=== PATIENT | male | born 1960 | race Caucasian/White ===

== ENCOUNTER 2019-10-07 10:34 | Inpatient (IN) | payer MEDICAID, SELFPAY ==
[2019-10-07] VITALS (8 sets, daily range): BP systolic 113–144; BP diastolic 70–86; PULSE 100–104; RESP 16–25; TEMP 36.2–37.2; O2SAT 94–100; BMI 33.2
--- NOTE | ~2019-10-07 | CT_ITS ---
EXAMINATION: CT LE LT w con EXAM DATE: 10/10/2019 17:49 INDICATION: Left leg sialoadenitis, redness. TECHNIQUE: Spiral CT left lower extremity was performed following intravenous injection of 100 mL Omn ipaque 350. Axial, coronal and sagittal images were reviewed. The dose-length product (DLP) for thi s examination was 1407.38 mGy-cm. The exposure was tailored according to patient size (auto mA expos ure control), and iterative reconstruction (ASIR) was used as additional dose reduction technique. Co rrelation is made to ultrasound 10/07/2019. FINDINGS: Difficult to identify the left peroneal DVT identified on ultrasound. Trace knee joint ef fusion. There is no abscess. Diffuse swelling of the catheter skin with rather extensive edema both s uperficially and within the deep fat planes of the calf. Mild amount of edema within the upper aspect of the leg superficial and deep fat planes. There are no acute fractures identified. There are no [place] erosions identified. IMPRESSION: Extensive lower leg edema, fat stranding both superficial and deep. No abscess. Reviewed, dictated and finalized at location A. [facility] [place] IMPRESSION: Extensive lower leg edema, fat stranding both superficial and deep . No abscess.
--- NOTE | ~2019-10-07 | US_ITS ---
EXAMINATION: US venous doppler LE DATE: 10/07/2019 12:30 INDICATION: Left lower limb pain, swelling and erythema. TECHNIQUE: Grayscale ultrasound images without and with compression and Doppler ultrasound images of the left lower extremity veins were obtained. COMPARISON: None. FINDINGS: Noncompressible deep venous thrombosis in one of the 2 peroneal veins at the left calf. The second le ft peroneal vein is patent. The visualized portions of left common femoral vein, profunda (deep) femo ral vein, femoral vein, popliteal vein, posterior tibial veins, gastrocnemius vein and greater saphen ous vein outflow are patent. IMPRESSION: 1. Deep venous thrombosis below the left knee in one of the paired left peroneal veins of the calf. Reviewed, dictated and finalized at location A. [employer] IMPRESSION: 1. Deep venous thrombosis below the left knee in one of the paired left perone al veins of the calf.
[2019-10-07 11:38] LABS: Basophils Percent Auto 0.2 % (0.2-1.2); Eosinophils Percent Auto 0.2 % (0-4.4); Hematocrit 38.7 % (42.0-52.0); Hemoglobin 13.1 g/dL (14.0-18.0); Immature Granulocyte Absolute 0.06 K/mm3 (0.00-0.031); Immature Granulocyte Percent A 0.5 % (0-0.5); Lymphocytes Absolute Auto 1.05 K/mm3 (0.9-3.2); Lymphocytes Percent Auto 8.3 % (18.3-44.2); Mean Corpuscular HGB Conc 33.9 g/dl (32-36); Mean Corpuscular Hemoglobin 29.5 pg (26-34); Mean Corpuscular Volume 87.2 fl (80-100); Mean Platelet Volume 11.6 fl (7.4-10.4); Monocytes Absolute Auto 0.6 K/mm3 (0.1-0.6); Monocytes Percent Auto 4.7 % (2.6-8.5); Neutrophils Absolute Auto 10.9 K/mm3 (1.3-6.7); Neutrophils Percent Auto 86.1 % (45.5-73.1); Platelet Count Result 164 k/mm3 (150-375); Red Blood Count 4.44 M/mm3 (4.6-6.20); Red Cell Distribution Width 14.4 % (11.5-14.5); White Blood Count 12.7 K/mm3 (4.5-10.0)
[2019-10-07 11:56] LABS: Blood Urea Nitrogen 20 mg/dL (9-20); Carbon Dioxide 30 mmol/L (22-30); Chloride 92 mmol/L (98-107); Estimated CRCL calculation 58 ml/min; Estimated Glomerular Filt Rate 44; Glucose 201 mg/dL (75-110); Potassium 2.8 mmol/L (3.4-5.0); Sodium 134 mmol/L (137-145)
--- NOTE | 2019-10-07 12:24 | ED.GENADULT ---
HPI - General Adult General Chief complaint: Extremity Injury, Lower Stated complaint: left leg swelling Time Seen by Provider: 10/07/19 12:10 Source: patient Mode of arrival: ambulatory Limitations: no limitations History of Present Illness HPI narrative: A 59 y/o male presents to the ED with c/o LLE pain. Pt states that 2 days ago the severe LLE pain started and was accompanied by LLE swelling and redness. He notes that he has a PMHx of cellulitis in his LLE and reports that this feels similar. Pt states that the LLE pain is alleviated when he is lying flat. He rates the LLE pain a 10/10 when he tries to stand and describes it as a burning pain. Pt denies fever, chills, N/V/D, rhinorrhea, sore throat, CP, and SOB. He states that he has been blowing dried blood from his nose and thinks he has a sinus infection. complaint: LLE pain Onset (ago): day(s) (2) Location: left and lower extremity Severity: severe and similar to prior episodes Severity scale (1-10): 10 Quality: burning Relieving factors: rest (Lying down) Associated symptoms: other (LLE redness, LLE swelling) Related Data Home Medications Medication Instructions Recorded Confirmed Amelog 10/07/19 Januvia 10/07/19 Vitamin D3 10/07/19 aspirin [Aspir-81] 10/07/19 hydrochlorothiazide 10/07/19 losartan 10/07/19 metformin 10/07/19 vitamin E 10/07/19 Allergies Allergy/AdvReac Type Severity Reaction Status Date / Time No Known Allergies Allergy Verified 10/07/19 12:12 Review of Systems Review of Systems: All systems reviewed & are unremarkable except as noted in HPI and below Constitutional: Constitutional: Denies chills and Denies fever(s) ENT: Denies nasal discharge and Denies sore throat Cardiovascular: Cardiovascular: Denies chest pain and Reports leg edema (LLE) Respiratory: Respiratory: Denies dyspnea Gastrointestinal: Gastrointestinal: Denies diarrhea, Denies nausea and Denies vomiting Musculoskeletal: Musculoskeletal: Reports myalgias (LLE) and Reports other (LLE redness) PMFSH Past Medical History Medical History (Updated 10/07/19 @ 15:06 by Vera Watson MD) Cellulitis Surgical History Surgical History (Updated 10/07/19 @ 13:02 by Grisel Griffin) No pertinent past surgical history Social History Social History (Updated 10/07/19 @ 13:02 by Grisel Griffin) Smoking status: Unknown if ever smoked Exam Const: General: no acute distress and well developed Orientation/consciousness: oriented to person, oriented to place, oriented to time and oriented x3 HENMT: Head: normocephalic Ears: external ears normal General nose exam: external nose normal Eyes: General: appearance normal, both eyes and all related structures Conjunctivae: conjunctivae normal Neck: Neck: normal visual inspection and full ROM Chest: Chest palpation & inspection: normal inspection of the chest and no tenderness Resp: Effort & Inspection: normal respiratory effort Auscultation: clear to auscultation bilaterally Cardio: Rate: regular rate Rhythm: regular rhythm GI: GI Palp: No abdominal tenderness and Yes soft Skin: General skin exam: normal color, turgor normal, ecchymosis and other (Left leg redness) Neuro: General: oriented to person, oriented to place, oriented to time and oriented x3 Cognition (Neuro): normal cognition Extrem: General: full ROM Psych: Appearance: grossly normal Mental Status: mental status grossly normal Affect: normal affect Course Consultations Consultation #1: Discussed case with Whitney Goodman NP. She will admit the patient. Date: 10/07/19 Time: 13:01 Vital Signs Vital signs: Vital Signs Temperature 37.2 C 10/07/19 11:22 Pulse Rate 100 10/07/19 11:22 Respiratory Rate 24 H 10/07/19 11:22 Blood Pressure 138/73 10/07/19 11:22 Pulse Oximetry 98 10/07/19 11:22 Temperature 37.2 C 10/07/19 11:22 Pulse Rate 100 10/07/19 14:47 Respiratory Rate 16 10/07/19 14:47 Bloo
[2019-10-07] MEDS: SODIUM CHLORIDE 0.9% IV 1,000 ML 999 ML IV CONT ×3 (13:08→16:08)
[2019-10-07] MEDS: POTASSIUM CHLORIDE 20 MEQ TABLET 40 MEQ PO (13:09)
--- NOTE | 2019-10-07 13:12 | PC.NURSE ---
blood cx attempted x3, only 1 set obtained
[2019-10-07 13:31] LABS: Lactic Acid Reflex 2.6 mmol/L (0.7-2.1)
--- NOTE | 2019-10-07 16:11 | PC.NURSE ---
Dr Walter membreno with up ad radha order in relation to DVT
[2019-10-07 16:13] LABS: Reflex Lactic Acid Yes or No Add Lactic
[2019-10-07] MEDS: ENOXAPARIN 120 MG/0.8 ML SYRINGE 110 MG SUB-Q (16:40)
--- NOTE | 2019-10-07 18:00 | ADMGEN ---
This patient, Isaias Zavala, was admitted to 3 [facility] Surg Room 311-01. Patient/family oriented to hospital policies and general routines including ID bracelet, bed and alarms, visiting hours, pain management, procedures, bathroom and other care routines, personal items, smoking policy, room service/diet, and visiting hours. Valuables list has been completed. Information on how to activate the Rapid Response Team has been discussed. Patient/Family are encouraged to report perceived risks to care and to ask questions if they do not understand what they are told or what they should do.
[2019-10-07 18:28] LABS: Lactic Acid 3.3 mmol/L (0.7-2.1)
--- NOTE | 2019-10-07 23:18 | PM.IMHP ---
H&P: HPI History of Present Illness Chief complaint: left leg cellulitis Narrative: Isaias Zavala is a 59 year old male who has had a past history of having cellulitis in the past. This patient is from [place]. 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 He travels long distances. Patient stated he recently traveled to [place] from [place]. The patient stated that his leg started to hurt him 2 days ago and the redness and swelling started then as well. He does not recall any injury to his left leg. He has had no previous history of any DVTs. His sodium is potassium level was low at 2.8. His lactic level was 3.3. Patient was given IV fluids in the emergency room. He was started on Zosyn and vancomycin. Patient was supplemented with potassium orally. Patient is admitted for left leg cellulitis. Which covers most of the left leg. Venous Doppler of the left leg shows that he has a DVT in 1 of the 2 peroneal veins in the left calf. Patient was given a dose of subcu Lovenox. Review of Systems Review of Systems: All systems reviewed & are unremarkable except as noted in HPI and below Constitutional: Constitutional: Reports as per HPI, Reports body ache(s), Reports chills, Reports difficulty sleeping, Reports fatigue and Reports other (Pain to left leg) Eyes: Eyes: Reports as per HPI and Reports no additional eye complaints ENT: Reports system reviewed and no additional complaints, except as documented and Reports hearing normal Cardiovascular: Cardiovascular: Reports no additional cardiovascular complaints Respiratory: Respiratory: Reports no additional respiratory complaints and Reports no additional respiratory complaints Gastrointestinal: Gastrointestinal: Reports as per HPI and Reports no additional gastrointestinal complaints Musculoskeletal: Musculoskeletal: Reports no additional musculoskeletal complaints Integumentary/Breasts: Skin/Breast: Reports system reviewed and no additional complaints, except as docu and Reports as per HPI Neurologic: Reports system reviewed and no additional complaints, except as documented, Reports as per HPI and Reports Normal hearing present Psychiatric: Psychiatric: Reports no additional psychiatric complaints and Reports as per HPI Endocrine: Endocrine: Reports no additional endocrine complaints Hematologic/Lymphatic: Hematologic/Lymphatic: Reports no additional hematologic/lymphatic complaints Allergic/Immunologic: Allergic/Immunologic: Reports no additional allergic/immunologic complaints [facility] Past Medical History Medical History (Updated 10/07/19 @ 23:26 by Whitney Goodman NP) Cellulitis Chronic progressive renal failure, stage 3 (moderate) DM2 (diabetes mellitus, type 2) HTN (hypertension) with goal to be determined Left leg DVT Surgical History Surgical History (Updated 10/07/19 @ 23:26 by Whitney Goodman NP) H/O local excision of skin lesion Family History Family History (Updated 10/07/19 @ 23:28 by Whitney Goodman NP) Father Rheumatoid arthritis Sibling Rheumatoid arthritis Social History Social History (Updated 10/07/19 @ 23:29 by Whitney Goodman NP) Social History: 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 He is single and has 1 daughter. 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
[2019-10-07] MEDS: HYDROMORPHONE HCL 1 MG/ML INJ 0.5 MG IV PUSH (23:21)
[2019-10-07 23:38] LABS: Glucose Point of Care 229 (65-105)
[2019-10-07] MEDS: INSULIN ASPART (*BKC) 100 UNITS/ML SUB-Q (23:53)
[2019-10-08 05:51] VITALS: BP 139/91; PULSE 93; RESP 16; TEMP 37.3; O2SAT 91
[2019-10-08 06:40] LABS: Basophils Percent Auto 0.2 % (0.2-1.2); Eosinophils Absolute Auto 0.2 K/mm3 (0-0.3); Eosinophils Percent Auto 2.1 % (0-4.4); Hematocrit 31.5 % (42.0-52.0); Hemoglobin 10.6 g/dL (14.0-18.0); Immature Granulocyte Absolute 0.06 K/mm3 (0.00-0.031); Immature Granulocyte Percent A 0.6 % (0-0.5); Lymphocytes Absolute Auto 1.11 K/mm3 (0.9-3.2); Lymphocytes Percent Auto 11.5 % (18.3-44.2); Mean Corpuscular HGB Conc 33.7 g/dl (32-36); Mean Corpuscular Hemoglobin 28.6 pg (26-34); Mean Corpuscular Volume 85.1 fl (80-100); Mean Platelet Volume 12.3 fl (7.4-10.4); Monocytes Percent Auto 9.8 % (2.6-8.5); Neutrophils Absolute Auto 7.3 K/mm3 (1.3-6.7); Neutrophils Percent Auto 75.8 % (45.5-73.1); Platelet Count Result 143 k/mm3 (150-375); Red Cell Distribution Width 14.1 % (11.5-14.5); White Blood Count 9.7 K/mm3 (4.5-10.0)
[2019-10-08 06:50] LABS: Blood Urea Nitrogen 18 mg/dL (9-20); Calcium 8.3 mg/dL (8.4-10.2); Carbon Dioxide 29 mmol/L (22-30); Chloride 98 mmol/L (98-107); Estimated CRCL calculation 83 ml/min; Estimated Glomerular Filt Rate > 60; Glucose 213 mg/dL (75-110); Potassium 2.9 mmol/L (3.4-5.0); Sodium 135 mmol/L (137-145)
[2019-10-08 06:52] LABS: Alanine Aminotransferase 27 U/L (4-50); Albumin Level 3.4 g/dL (3.5-5.1); Alkaline Phosphatase 100 U/L (38-126); Aspartate Amino Transferase 33 U/L (17-59); Bilirubin,Total 0.9 mg/dL (0.2-1.3); Blood Urea Nitrogen 18 mg/dL (9-20); Calcium 8.3 mg/dL (8.4-10.2); Carbon Dioxide 29 mmol/L (22-30); Chloride 98 mmol/L (98-107); Estimated CRCL calculation 76 ml/min; Estimated Glomerular Filt Rate > 60; Glucose 211 mg/dL (75-110); Magnesium 2.1 mg/dL (1.6-2.3); Potassium 2.9 mmol/L (3.4-5.0); Sodium 137 mmol/L (137-145)
[2019-10-08 08:07] LABS: Hemoglobin A1C 8.4 % (<5.7)
[2019-10-08] MEDS: ENOXAPARIN 120 MG/0.8 ML SYRINGE 110 MG SUB-Q ×2 (08:40→20:00)
[2019-10-08] MEDS: POTASSIUM CHLORIDE 20 MEQ TABLET 40 MEQ PO ×2 (08:44→18:16)
[2019-10-08] MEDS: INSULIN ASPART (*BKC) 100 UNITS/ML SUB-Q ×3 (09:03→18:17)
[2019-10-08 09:33] LABS: Glucose Point of Care 220 (65-105)
[2019-10-08 13:21] LABS: Glucose Point of Care 296 (65-105)
[2019-10-08 13:31] LABS: Basophils Percent Auto 0.2 % (0.2-1.2); Eosinophils Absolute Auto 0.2 K/mm3 (0-0.3); Eosinophils Percent Auto 2.5 % (0-4.4); Hematocrit 32.6 % (42.0-52.0); Hemoglobin 11.2 g/dL (14.0-18.0); Immature Granulocyte Absolute 0.04 K/mm3 (0.00-0.031); Immature Granulocyte Percent A 0.4 % (0-0.5); Lymphocytes Absolute Auto 1.69 K/mm3 (0.9-3.2); Lymphocytes Percent Auto 17.6 % (18.3-44.2); Mean Corpuscular HGB Conc 34.4 g/dl (32-36); Mean Corpuscular Hemoglobin 29.4 pg (26-34); Mean Corpuscular Volume 85.6 fl (80-100); Monocytes Absolute Auto 0.8 K/mm3 (0.1-0.6); Monocytes Percent Auto 8.7 % (2.6-8.5); Neutrophils Absolute Auto 6.8 K/mm3 (1.3-6.7); Neutrophils Percent Auto 70.6 % (45.5-73.1); Platelet Count Result 159 k/mm3 (150-375); Red Blood Count 3.81 M/mm3 (4.6-6.20); Red Cell Distribution Width 14.1 % (11.5-14.5); White Blood Count 9.6 K/mm3 (4.5-10.0)
[2019-10-08 13:44] LABS: Blood Urea Nitrogen 17 mg/dL (9-20); Calcium 8.4 mg/dL (8.4-10.2); Carbon Dioxide 29 mmol/L (22-30); Chloride 94 mmol/L (98-107); Estimated CRCL calculation 83 ml/min; Estimated Glomerular Filt Rate > 60; Glucose 268 mg/dL (75-110); Magnesium 2.2 mg/dL (1.6-2.3); Sodium 134 mmol/L (137-145)
[2019-10-08 14:00] VITALS: BP 143/95; PULSE 93; RESP 18; TEMP 36.7; O2SAT 99
--- NOTE | 2019-10-08 16:53 | PM.IMPN ---
Progress Note: A&P Assessment and Plan (1) Cellulitis of left leg: Code(s): L03.116 - Cellulitis of left lower limb Status: Acute Assessment and Plan: Blood cultures are pending. Continue IV vanc and imipenem. Lactic has normalized. Patient is anxious to get out of the hospital. (2) Sepsis: Code(s): A41.9 - Sepsis, unspecified organism Status: Acute Assessment and Plan: Lactic acid normalized. Continue with antibiotics. IVF stopped. Patient does not appear septic at this time. (3) Hypokalemia: Code(s): E87.6 - Hypokalemia Status: Acute Assessment and Plan: Slowly improving. K 3.0 this afternoon; replaced. Replace as necessary. (4) HTN (hypertension) with goal to be determined: Code(s): I10 - Essential (primary) hypertension Status: Chronic Assessment and Plan: I am holding his medications for now due to increased creatinine, which is improving. IV hydralazine as needed. (5) DM2 (diabetes mellitus, type 2): Code(s): E11.9 - Type 2 diabetes mellitus without complications Status: Acute Assessment and Plan: Sliding scale insulin. A1c 8.4. Patient takes 45 units Lantus QAM; will resume tomorrow morning. Continue SSI, hypoglycemia protocol, ACHS accuchecks (6) Left leg DVT: Code(s): I82.402 - Acute embolism and thrombosis of unspecified deep veins of left lower extremity Status: Acute Assessment and Plan: Subcu therapeutic Lovenox today, then start Xarelto tomorrow morning with 15 mg BID for 21 days, then 20 mg daily thereafter. He will follow up with primary thereafter. (7) Chronic progressive renal failure, stage 3 (moderate): Code(s): N18.3 - Chronic kidney disease, stage 3 (moderate) Status: Chronic Assessment and Plan: Cr is improving today. Unsure of baseline. Metformin, hydrochlorothiazide, Januvia, losartan held for now. May resume some meds tomorrow or at discharge. (8) Left leg swelling: Code(s): M79.89 - Other specified soft tissue disorders Status: Inactive Assessment and Plan: Cellulitis plus DVT. Subjective Interval history: Patient is a 59 yo M with history of DMII, multiple past cellulitis episodes in the past, CKD, and HTN who is here for left lower leg cellulitis and left leg DVT. Patient is doing better today. He thinks his redness in his leg is going down, as well as, his swelling. He can also ambulate better, but still in significant amount of pain. He states he has chronic swelling in his lower extremities. He denies f/c/ns, cp/palpitations, sob, cough, n/v/d/c, rectal bleeding, melena, dysuria, hematuria, right calf pain. Review of Systems Review of Systems: All systems reviewed & are unremarkable except as noted in HPI and below Exam Narrative: Exam Narrative: Patient sitting upright in chair with both legs raised, shirt off, resting comfortable, talking on phone at time of visit Const: General: comfortable, no acute distr
[2019-10-08 18:37] LABS: Glucose Point of Care 228 (65-105)
[2019-10-08 22:00] VITALS: BP 135/87; PULSE 97; RESP 20; TEMP 36.8; O2SAT 92
[2019-10-08 22:45] LABS: Glucose Point of Care 291 (65-105)
[2019-10-09 06:00] VITALS: BP 160/90; PULSE 93; RESP 20; TEMP 36.8; O2SAT 95
[2019-10-09 08:00] VITALS: BP 150/96; PULSE 86; RESP 20; TEMP 35.8; O2SAT 96
[2019-10-09] MEDS: hydrALAZINE HCL 25 MG TABLET PO ×2 (08:15→16:58)
[2019-10-09] MEDS: ASPIRIN 81 MG ENTERIC TABLET PO (08:15)
[2019-10-09] MEDS: RIVAROXABAN 15 MG TABLET PO ×2 (08:16→16:58)
[2019-10-09 08:31] LABS: Blood Urea Nitrogen 14 mg/dL (9-20); Calcium 8.2 mg/dL (8.4-10.2); Carbon Dioxide 30 mmol/L (22-30); Chloride 99 mmol/L (98-107); Estimated CRCL calculation 90 ml/min; Estimated Glomerular Filt Rate > 60; Glucose 232 mg/dL (75-110); Magnesium 2.2 mg/dL (1.6-2.3); Potassium 3.5 mmol/L (3.4-5.0); Sodium 136 mmol/L (137-145)
[2019-10-09 08:33] LABS: Basophils Percent Auto 0.2 % (0.2-1.2); Eosinophils Absolute Auto 0.3 K/mm3 (0-0.3); Eosinophils Percent Auto 3.1 % (0-4.4); Hemoglobin 10.7 g/dL (14.0-18.0); Immature Granulocyte Absolute 0.07 K/mm3 (0.00-0.031); Immature Granulocyte Percent A 0.8 % (0-0.5); Lymphocytes Absolute Auto 1.48 K/mm3 (0.9-3.2); Lymphocytes Percent Auto 17.1 % (18.3-44.2); Mean Corpuscular HGB Conc 34.5 g/dl (32-36); Mean Corpuscular Hemoglobin 29.2 pg (26-34); Mean Corpuscular Volume 84.5 fl (80-100); Mean Platelet Volume 12.3 fl (7.4-10.4); Monocytes Absolute Auto 0.9 K/mm3 (0.1-0.6); Monocytes Percent Auto 10.6 % (2.6-8.5); Neutrophils Absolute Auto 5.9 K/mm3 (1.3-6.7); Neutrophils Percent Auto 68.2 % (45.5-73.1); Platelet Count Result 188 k/mm3 (150-375); Red Blood Count 3.67 M/mm3 (4.6-6.20); Red Cell Distribution Width 14.1 % (11.5-14.5); White Blood Count 8.7 K/mm3 (4.5-10.0)
[2019-10-09] MEDS: INSULIN ASPART (*BKC) 100 UNITS/ML SUB-Q ×4 (08:39→18:10)
[2019-10-09] MEDS: POTASSIUM CHLORIDE 10 MEQ TABLET PO (08:43)
[2019-10-09] MEDS: INSULIN GLARGINE (*BKC) 100 UNITS/ML 45 UNITS SUB-Q (08:44)
[2019-10-09 09:37] LABS: Glucose Point of Care 229 (65-105)
[2019-10-09 10:53] LABS: Lactic Acid 1.6 mmol/L (0.7-2.1)
[2019-10-09] MEDS: POTASSIUM CHLORIDE 20 MEQ TABLET 40 MEQ PO (12:24)
--- NOTE | 2019-10-09 13:27 | PM.IMPN ---
Progress Note: A&P Assessment and Plan (1) Cellulitis of left leg: Code(s): L03.116 - Cellulitis of left lower limb Status: Acute Assessment and Plan: Blood cultures are negative to date. Continue IV vanc and imipenem. Lactic has normalized. Patient is agreeable to stay in hospital for more IV antibiotics. Will order PT/OT for decreased ambulation. HCTZ resumed to aid in swelling. Cr has improved. I would like to see more improvement in leg erythema and swelling and with his ambulation prior to discharge. Will reassess tomorrow (2) Sepsis: Code(s): A41.9 - Sepsis, unspecified organism Status: Acute Assessment and Plan: Lactic acid normalized. Continue with antibiotics. PO fluids. Patient does not appear septic at this time. (3) Hypokalemia: Code(s): E87.6 - Hypokalemia Status: Acute Assessment and Plan: Slowly improving. K 3.5 today; replaced; trend tomorrow and replace as necessary. (4) HTN (hypertension) with goal to be determined: Code(s): I10 - Essential (primary) hypertension Status: Chronic Assessment and Plan: I resumed his HCTZ today as his Cr has improved. Continue home dose hydralazine. IV hydralazine as needed. Will consider resuming other BP meds if Cr stable. (5) DM2 (diabetes mellitus, type 2): Code(s): E11.9 - Type 2 diabetes mellitus without complications Status: Acute Assessment and Plan: Sliding scale insulin. A1c 8.4. Continue home 45 u Lantus QAM. Patient takes 15 units short acting in the morning at home; Continue 5 u Novolog TIDWM while in the hospital. BGL high 100s-low 200s. Continue SSI, hypoglycemia protocol, ACHS accuchecks (6) Left leg DVT: Code(s): I82.402 - Acute embolism and thrombosis of unspecified deep veins of left lower extremity Status: Acute Assessment and Plan: Originally on subcu lovenox at therapeutic dose; this has been d/c; Xarelto initiated today; 15 mg BID for 21 days, then 20 mg daily thereafter. He will follow up with primary thereafter. (7) Chronic progressive renal failure, stage 3 (moderate): Code(s): N18.3 - Chronic kidney disease, stage 3 (moderate) Status: Chronic Assessment and Plan: Cr is improving today. Unsure of baseline. Metformin, Januvia, losartan held for now. May resume some meds tomorrow or at discharge. (8) Left leg swelling: Code(s): M79.89 - Other specified soft tissue disorders Status: Inactive Assessment and Plan: Cellulitis plus DVT. please see above a/p Subjective Interval history: Patient is a 59 yo M with history of DMII, multiple past cellulitis episodes in the past, CKD, and HTN who is here for left lower leg cellulitis and left leg DVT. Patient is improving today. He thinks his redness in his leg is going down, but he states his swelling is still improving. He can also ambulate better, but still in significant amount of pain and limited in his mobility. He had a nose bleed this m
[2019-10-09 13:31] LABS: Glucose Point of Care 185 (65-105)
[2019-10-09 14:00] VITALS: BP 161/56; PULSE 95; RESP 18; TEMP 37; O2SAT 97
[2019-10-09] MEDS: ACETAMINOPHEN 325 MG TABLET 650 MG PO ×2 (15:25→20:08)
[2019-10-09] MEDS: CALCIUM CARBONATE (TUMS) 500 MG (200 MG ELEMENTAL) PO ×2 (15:26→21:26)
[2019-10-09 18:08] LABS: Glucose Point of Care 156 (65-105)
[2019-10-09 20:54] LABS: Glucose Point of Care 231 (65-105)
[2019-10-09 22:00] VITALS: BP 158/90; PULSE 78; RESP 18; TEMP 36.9; O2SAT 94
[2019-10-09 23:40] VITALS: BP 154/90
--- NOTE | 2019-10-10 00:51 | ECG_ITS ---
Measurements Intervals [place] Rate: 85 P: 49 AK: 175 QRS: 25 QRSD: 114 T: 9 QT: 403 QTc: 481 Interpretive Statements SINUS RHYTHM WITH SINUS ARRHYTHMIA INTRAVENTRICULAR CONDUCTION DELAY BORDERLINE ST ABNORMALITY- INFERIOR LEADS BORDERLINE ECG Electronically Signed On 10-10-2019 7:12:06 IGNITER CAPPER by Aj Mathews D.O.
[2019-10-10] MEDS: MAG HYDROX/AL HYDROX/SIMETH 30 ML UDC PO (01:04)
[2019-10-10] MEDS: LORAZEPAM INJ 2 MG/ML VIAL 0.5 MG IV PUSH (01:04)
[2019-10-10] MEDS: ACETAMINOPHEN 325 MG TABLET 650 MG PO ×3 (05:28→20:07)
[2019-10-10 06:00] VITALS: BP 152/82; PULSE 99; RESP 20; TEMP 37.1; O2SAT 95
[2019-10-10 06:32] LABS: Basophils Percent Auto 0.4 % (0.2-1.2); Eosinophils Absolute Auto 0.2 K/mm3 (0-0.3); Eosinophils Percent Auto 2.1 % (0-4.4); Hematocrit 32.8 % (42.0-52.0); Hemoglobin 11.1 g/dL (14.0-18.0); Immature Granulocyte Absolute 0.15 K/mm3 (0.00-0.031); Immature Granulocyte Percent A 1.4 % (0-0.5); Lymphocytes Absolute Auto 1.37 K/mm3 (0.9-3.2); Mean Corpuscular HGB Conc 33.8 g/dl (32-36); Mean Corpuscular Hemoglobin 29.1 pg (26-34); Mean Corpuscular Volume 85.9 fl (80-100); Mean Platelet Volume 11.9 fl (7.4-10.4); Monocytes Absolute Auto 1.1 K/mm3 (0.1-0.6); Monocytes Percent Auto 10.2 % (2.6-8.5); Neutrophils Absolute Auto 7.7 K/mm3 (1.3-6.7); Neutrophils Percent Auto 72.9 % (45.5-73.1); Platelet Count Result 200 k/mm3 (150-375); Red Blood Count 3.82 M/mm3 (4.6-6.20); Red Cell Distribution Width 14.1 % (11.5-14.5); White Blood Count 10.6 K/mm3 (4.5-10.0)
[2019-10-10 06:42] LABS: Blood Urea Nitrogen 13 mg/dL (9-20); Calcium 8.5 mg/dL (8.4-10.2); Carbon Dioxide 27 mmol/L (22-30); Chloride 98 mmol/L (98-107); Estimated CRCL calculation 90 ml/min; Estimated Glomerular Filt Rate > 60; Glucose 236 mg/dL (75-110); Sodium 135 mmol/L (137-145)
[2019-10-10 08:00] VITALS: PULSE 86; RESP 20; TEMP 35.8; O2SAT 96
[2019-10-10 08:49] LABS: Glucose Point of Care 246 (65-105)
[2019-10-10] MEDS: hydroCHLOROthiazide 25 MG TABLET 50 MG PO (08:55)
[2019-10-10] MEDS: RIVAROXABAN 15 MG TABLET PO ×2 (08:55→18:09)
[2019-10-10] MEDS: ASPIRIN 81 MG ENTERIC TABLET PO (08:55)
[2019-10-10] MEDS: hydrALAZINE HCL 25 MG TABLET PO ×2 (08:55→18:09)
[2019-10-10] MEDS: POTASSIUM CHLORIDE 20 MEQ TABLET 40 MEQ PO ×2 (08:57→18:40)
[2019-10-10] MEDS: INSULIN GLARGINE (*BKC) 100 UNITS/ML 45 UNITS SUB-Q (08:57)
[2019-10-10] MEDS: LOSARTAN POTASSIUM 100 MG TABLET BY MOUTH (09:20)
[2019-10-10] MEDS: INSULIN ASPART (*BKC) 100 UNITS/ML SUB-Q ×3 (09:20→13:36)
[2019-10-10] MEDS: POTASSIUM CHLORIDE 10 MEQ TABLET PO (10:27)
--- NOTE | 2019-10-10 11:28 | PM.IMPN ---
Progress Note: A&P Assessment and Plan (1) Cellulitis of left leg: Code(s): L03.116 - Cellulitis of left lower limb Status: Acute Assessment and Plan: Discussed with PA. Suspect induration and other use of the left lower extremity all from cellulitis but CT scan ordered to ensure no abscess. Results available late on 10/10/2019 with extensive lower leg edema and fat stranding both superficial and deep but no abscess. Will keep patient here today on a IV vancomycin and imipenem. Reassess tomorrow. [place] and IV morphine as needed for pain. (2) Left leg DVT: Qualifiers: Affected thrombotic vein of extremity: peroneal Chronicity: acute Qualified Code(s): I82.452 - Acute embolism and thrombosis of left peroneal vein Code(s): I82.402 - Acute embolism and thrombosis of unspecified deep veins of left lower extremity Status: Acute Assessment and Plan: Venous Doppler left lower extremity with DVT in 1 of 2 left peroneal veins. Will continue Xarelto. 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 Still with some elevated readings. Will continue Lantus and scheduled NovoLog with meals. Will restart home Januvia. sliding scale insulin as needed. May need to adjust medication if not improving. Hemoglobin A1c 8.4. (4) Hypokalemia: Code(s): E87.6 - Hypokalemia Status: Acute Assessment and Plan: Potassium 3.0 today. Home potassium continued with additional replacement given today. Continue to monitor and replace as needed. (5) HTN (hypertension) with goal to be determined: Code(s): I10 - Essential (primary) hypertension Status: Chronic Assessment and Plan: Blood pressure reviewed on 10/10/2019 with persistent mild elevation. Continue home hydralazine, losartan and hydrochlorothiazide. Will continue to monitor. May need to increase hydralazine if elevated blood pressure persists. (6) Chronic progressive renal failure, stage 3 (moderate): Code(s): N18.3 - Chronic kidney disease, stage 3 (moderate) Status: Chronic Assessment and Plan: Creatinine stable at 1.00 today. Will continue to monitor. Time Spent With Patient Time with patient: 15 - 25 minutes Subjective Interval history: Date of Service: 10/10/2019. Admitted with cellulitis left lower extremity, DVT left lower extremity. Case reviewed and discussed with PA. Patient seen with PA this morning. Decreased redness left lower extremity but has other discoloration on lower portion of leg and foot. No chest pain or shortness of breath. No nausea or vomiting. Nosebleeds better. Review of Systems Constitutional: Constitutional: Denies fever(s) ENT: Comments: epistaxis Cardiovascular: Cardiovascular: Denies chest pain Respiratory: Respiratory: Denies dyspnea Gastrointestinal: Gastrointestinal: Denies abdominal pain, Denies nausea and Denies vomiting Genitourinary: Genitourinary: Reports no additional male genitourinary complaints Integumentary/Breasts: Comments: Erythema and purplish discoloration left lower extremity Neurologic: Denies numbness Psychiatric: Psychiatric: Denies anxiety Exam Const: General: no acute distress Resp: Auscultation: clear to auscultation bilaterally, no rales and no wheezes Cardio: Rate: regular rate Rhythm: regular rhythm Skin: Other: near resoluti
--- NOTE | 2019-10-10 11:56 | PM.IMPN ---
Progress Note: A&P Assessment and Plan (1) Cellulitis of left leg: Code(s): L03.116 - Cellulitis of left lower limb Status: Acute Assessment and Plan: Blood cultures are negative to date. Continue IV vanc and imipenem. Lactic has normalized. Patient is agreeable to stay in hospital for more IV antibiotics. Continue PT/OT for decreased ambulation. HCTZ resumed to aid in swelling. Cr has improved. There appears to be more blue/black coloration of the skin with some induration of the localized areas anteriorly and posteriorly. CT of the LE has been ordered for further evaluation. Will likely keep patient tonight for additional IV abx and PT/OT therapy. Patient is anxious to leave the hospital. (2) Sepsis: Code(s): A41.9 - Sepsis, unspecified organism Status: Acute Assessment and Plan: Lactic acid normalized. Continue with antibiotics. PO fluids. Patient does not appear septic at this time. (3) Hypokalemia: Code(s): E87.6 - Hypokalemia Status: Acute Assessment and Plan: K 3.0 today; replaced; trend tomorrow and replace as necessary. (4) HTN (hypertension) with goal to be determined: Code(s): I10 - Essential (primary) hypertension Status: Chronic Assessment and Plan: Continue home BP meds as Cr has improved. CT w/ contrast to be performed today. Trend Cr tomorrow and consider holding nephrotoxic agents if MERLIN. IV hydralazine as needed. (5) DM2 (diabetes mellitus, type 2): Code(s): E11.9 - Type 2 diabetes mellitus without complications Status: Acute Assessment and Plan: Sliding scale insulin. A1c 8.4. Continue home 45 u Lantus QAM. Patient takes 15 units short acting in the morning at home; Will increase short acting to 8 u Novolog TIDWM; consider recommend changing regimen of short acting insulin at discharge. BGL 200s. Continue SSI, hypoglycemia protocol, ACHS accuchecks (6) Left leg DVT: Code(s): I82.402 - Acute embolism and thrombosis of unspecified deep veins of left lower extremity Status: Acute Assessment and Plan: Originally on subcu lovenox at therapeutic dose; this has been d/c; Xarelto initiated on 10/09; 15 mg BID for total of 21 days, then 20 mg daily thereafter. He will follow up with primary for further management (7) Chronic progressive renal failure, stage 3 (moderate): Code(s): N18.3 - Chronic kidney disease, stage 3 (moderate) Status: Chronic Assessment and Plan: Cr is stable today. Unsure of baseline. Metformin, Januvia held for now. CT with contrast today. Trend labs tomorrow. Consider resuming all meds tomorrow or at discharge. (8) Left leg swelling: Code(s): M79.89 - Other specified soft tissue disorders Status: Inactive Assessment and Plan: Cellulitis plus DVT. please see above a/p Subjective Interval history: Patient is a 59 yo M with history of DMII, multiple past cellulitis episodes in the past, CKD, and HTN who is here for left lower
[2019-10-10 13:29] LABS: Glucose Point of Care 205 (65-105)
[2019-10-10 14:00] VITALS: BP 162/66; PULSE 94; RESP 18; TEMP 36.9; O2SAT 97
--- NOTE | 2019-10-10 14:52 | PCPTNOTE ---
PT attempted to see pt this afternoon for therapy. Pt asked what am I supposed to do? Pt was informed that PT wanted to improve his mobility and strength. Pt acknowledged understanding the need for PT but declined therapy at this time.
--- NOTE | 2019-10-10 15:01 | PCPTNOTE ---
Pt performed standing pivot transfer from chair to bed and bed to chair. Pt declined attempts to ambulate. Pt states that he knows he can walk but it will be painful. Pt was encouraged to work on standing transfers and ambulation with PT. Pt continued to decline at this time. PT will continue to follow.
[2019-10-10 18:45] LABS: Glucose Point of Care 185 (65-105)
[2019-10-10] MEDS: INSULIN ASPART (*BKC) 100 UNITS/ML 8 UNITS SUB-Q (18:56)
[2019-10-10] MEDS: CALCIUM CARBONATE (TUMS) 500 MG (200 MG ELEMENTAL) PO (20:07)
[2019-10-10 22:00] VITALS: BP 179/106; PULSE 86; RESP 18; TEMP 37.2; O2SAT 92
[2019-10-10] MEDS: hydrALAZINE HCL 20 MG/ML VIAL 10 MG IV PUSH (22:04)
[2019-10-10 22:40] LABS: Glucose Point of Care 188 (65-105)
[2019-10-10 23:20] VITALS: BP 134/73; PULSE 93; RESP 18; O2SAT 98
[2019-10-11] MEDS: ACETAMINOPHEN 325 MG TABLET 650 MG PO ×2 (05:35→18:52)
[2019-10-11 06:00] VITALS: BP 160/90; PULSE 99; RESP 18; TEMP 36.9; O2SAT 95
[2019-10-11 06:30] LABS: Basophils Absolute Auto 0.1 K/mm3 (0.0-0.1); Basophils Percent Auto 0.5 % (0.2-1.2); Eosinophils Absolute Auto 0.2 K/mm3 (0-0.3); Hemoglobin 11.8 g/dL (14.0-18.0); Immature Granulocyte Absolute 0.21 K/mm3 (0.00-0.031); Immature Granulocyte Percent A 2.1 % (0-0.5); Lymphocytes Absolute Auto 1.35 K/mm3 (0.9-3.2); Lymphocytes Percent Auto 13.3 % (18.3-44.2); Mean Corpuscular HGB Conc 34.7 g/dl (32-36); Mean Corpuscular Hemoglobin 29.1 pg (26-34); Mean Corpuscular Volume 83.7 fl (80-100); Mean Platelet Volume 11.1 fl (7.4-10.4); Monocytes Absolute Auto 1.2 K/mm3 (0.1-0.6); Monocytes Percent Auto 11.6 % (2.6-8.5); Neutrophils Absolute Auto 7.2 K/mm3 (1.3-6.7); Neutrophils Percent Auto 70.5 % (45.5-73.1); Platelet Count Result 240 k/mm3 (150-375); Red Blood Count 4.06 M/mm3 (4.6-6.20); Red Cell Distribution Width 14.2 % (11.5-14.5); White Blood Count 10.1 K/mm3 (4.5-10.0)
[2019-10-11 06:41] LABS: Blood Urea Nitrogen 12 mg/dL (9-20); Calcium 8.7 mg/dL (8.4-10.2); Carbon Dioxide 28 mmol/L (22-30); Chloride 96 mmol/L (98-107); Estimated CRCL calculation 90 ml/min; Estimated Glomerular Filt Rate > 60; Glucose 249 mg/dL (75-110); Potassium 3.2 mmol/L (3.4-5.0); Sodium 135 mmol/L (137-145)
[2019-10-11 08:06] VITALS: BP 151/86; PULSE 80; RESP 18; TEMP 36.9; O2SAT 100
[2019-10-11] MEDS: INSULIN GLARGINE (*BKC) 100 UNITS/ML 52 UNITS SUB-Q (08:11)
[2019-10-11] MEDS: POTASSIUM CHLORIDE 20 MEQ TABLET 40 MEQ PO (08:15)
[2019-10-11] MEDS: ASPIRIN 81 MG ENTERIC TABLET PO (08:16)
[2019-10-11] MEDS: hydroCHLOROthiazide 25 MG TABLET 50 MG PO (08:16)
[2019-10-11] MEDS: LOSARTAN POTASSIUM 100 MG TABLET BY MOUTH (08:16)
[2019-10-11] MEDS: RIVAROXABAN 15 MG TABLET PO ×2 (08:17→16:56)
[2019-10-11] MEDS: hydrALAZINE HCL 25 MG TABLET PO ×2 (08:17→16:55)
[2019-10-11] MEDS: INSULIN ASPART (*BKC) 100 UNITS/ML 10 UNITS SUB-Q ×3 (08:27→18:14)
[2019-10-11] MEDS: INSULIN ASPART (*BKC) 100 UNITS/ML SUB-Q ×2 (08:27→12:49)
[2019-10-11] MEDS: POTASSIUM CHLORIDE 10 MEQ TABLET PO (08:29)
[2019-10-11 08:34] LABS: Glucose Point of Care 222 (65-105)
[2019-10-11 12:47] LABS: Glucose Point of Care 205 (65-105)
--- NOTE | 2019-10-11 14:05 | PM.IMPN ---
Progress Note: A&P Assessment and Plan (1) Cellulitis of left leg: Code(s): L03.116 - Cellulitis of left lower limb Status: Acute Assessment and Plan: Blood cultures are negative to date. Continue IV vanc and imipenem. Lactic has normalized. Patient is agreeable to stay in hospital for more IV antibiotics. Continue PT/OT for decreased ambulation. 10/11/19: WBC 10,100 today. Vitals stable. Still erythema, warmth, and petechiae to anterior and posterior left lower leg. CT of the LE was ordered and showed extensive lower leg edema and fat stranding both superficial and deep but no abscess. Will order Wound Culture to Anterior Anton with some drainage noted. He stated that his cats often kneed at this lower legs while he is sleeping and Pasteurella is a possibility for cause. Will add Azithromycin for this coverage. Will likely keep patient tonight for additional IV abx and PT/OT therapy. Patient is anxious to leave the hospital. Reassess tomorrow. [place] and IV morphine as needed for pain. (2) Left leg DVT: Qualifiers: Affected thrombotic vein of extremity: peroneal Chronicity: acute Qualified Code(s): I82.452 - Acute embolism and thrombosis of left peroneal vein Code(s): I82.402 - Acute embolism and thrombosis of unspecified deep veins of left lower extremity Status: Acute Assessment and Plan: Venous Doppler left lower extremity with DVT in 1 of 2 left peroneal veins. Will continue Xarelto. 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 Still with some elevated readings. Will continue Lantus and scheduled NovoLog with meals. Continue home Januvia. 10/11/19: Increased Lantus to 52 Units and continue Aspart 10 Units TID. Hemoglobin A1c 8.4. Sliding scale insulin as needed. May need to adjust medication if not improving. (4) Hypokalemia: Code(s): E87.6 - Hypokalemia Status: Acute Assessment and Plan: Potassium 3.2 today. Home potassium continued with additional replacement given today. Continue to monitor and replace as needed. (5) HTN (hypertension) with goal to be determined: Code(s): I10 - Essential (primary) hypertension Status: Chronic Assessment and Plan: Blood pressure reviewed on 10/10/2019 with persistent mild elevation. Continue home hydralazine, losartan and hydrochlorothiazide. Will continue to monitor. May need to increase hydralazine if elevated blood pressure persists. (6) Chronic progressive renal failure, stage 3 (moderate): Code(s): N18.3 - Chronic kidney disease, stage 3 (moderate) Status: Chronic Assessment and Plan: HCTZ resumed to aid in swelling. Cr has improved. Creatinine stable at 1.00 today. Will continue to monitor. Time Spent With Patient Time with patient: 25 - 35 minutes Subjective Interval history: Date of Service 10/11/19: He reports slow improvement of his redness, swelling and pain. He was able to walk today using a walker and putting most of the weight on his forefoot. He reports chills at this time, and occasional fever. He denies chest pain, shortness of breath, nausea, vomiting, diarrhea, constipation. His last bowel movement was this morning. Review of Systems Review of Systems: All systems reviewed & are unremarkable except as noted in HPI and below Exam Narrative: Exam Narrative: General:
[2019-10-11 14:24] VITALS: BP 142/78; PULSE 107; RESP 16; TEMP 36.9; O2SAT 100
[2019-10-11 18:18] LABS: Glucose Point of Care 184 (65-105)
[2019-10-11 21:38] VITALS: BP 141/86; PULSE 86; RESP 20; TEMP 37; O2SAT 96
[2019-10-12 05:46] LABS: Hematocrit 35.2 % (42.0-52.0); Mean Corpuscular HGB Conc 34.1 g/dl (32-36); Mean Corpuscular Hemoglobin 29.1 pg (26-34); Mean Corpuscular Volume 85.4 fl (80-100); Mean Platelet Volume 11.2 fl (7.4-10.4); Platelet Count Result 308 k/mm3 (150-375); Red Blood Count 4.12 M/mm3 (4.6-6.20); Red Cell Distribution Width 14.5 % (11.5-14.5); White Blood Count 10.9 K/mm3 (4.5-10.0)
[2019-10-12 05:54] LABS: Blood Urea Nitrogen 14 mg/dL (9-20); Calcium 8.8 mg/dL (8.4-10.2); Carbon Dioxide 31 mmol/L (22-30); Chloride 96 mmol/L (98-107); Estimated CRCL calculation 83 ml/min; Estimated Glomerular Filt Rate > 60; Glucose 209 mg/dL (75-110); Potassium 3.3 mmol/L (3.4-5.0); Sodium 135 mmol/L (137-145)
[2019-10-12 06:00] VITALS: BP 118/75; PULSE 89; RESP 18; TEMP 36.9; O2SAT 99
[2019-10-12 07:11] LABS: Vancomycin Trough 13.1 ug/mL (10.0-20.0)
[2019-10-12] MEDS: INSULIN ASPART (*BKC) 100 UNITS/ML SUB-Q (08:00)
[2019-10-12] MEDS: INSULIN ASPART (*BKC) 100 UNITS/ML 10 UNITS SUB-Q ×2 (08:00→12:55)
[2019-10-12] MEDS: INSULIN GLARGINE (*BKC) 100 UNITS/ML 52 UNITS SUB-Q (08:08)
[2019-10-12] MEDS: ACETAMINOPHEN 325 MG TABLET 650 MG PO (08:09)
[2019-10-12 08:14] LABS: Glucose Point of Care 224 (65-105)
[2019-10-12 08:31] VITALS: BP 138/81; PULSE 85
[2019-10-12] MEDS: POTASSIUM CHLORIDE 20 MEQ TABLET 40 MEQ PO (08:33)
[2019-10-12] MEDS: hydroCHLOROthiazide 25 MG TABLET 50 MG PO (08:34)
[2019-10-12] MEDS: hydrALAZINE HCL 25 MG TABLET PO (08:34)
[2019-10-12] MEDS: ASPIRIN 81 MG ENTERIC TABLET PO (08:34)
[2019-10-12] MEDS: LOSARTAN POTASSIUM 100 MG TABLET BY MOUTH (08:35)
[2019-10-12] MEDS: RIVAROXABAN 15 MG TABLET PO (08:35)
[2019-10-12] MEDS: POTASSIUM CHLORIDE 10 MEQ TABLET PO (08:35)
--- NOTE | 2019-10-12 11:30 | PCPTNOTE ---
PT attempted to see pt 2x in AM for PT however pt unavailable. PT will follow up with pt in PM.
[2019-10-12 12:01] LABS: Glucose Point of Care 136 (65-105)
--- NOTE | 2019-10-12 12:29 | PM.DS ---
DS: Diagnosis Admitting Diagnosis Admitting Diagnosis: Cellulitis of left lower limb Discharge Diagnosis (1) Cellulitis of left leg: Code(s): L03.116 - Cellulitis of left lower limb Status: Acute Assessment and Plan: He reports feeling much better today. He has been up walking around on his own around the room without any retail assistant manager devices and reports improvement of redness and some swelling. Examination is improved today. Will have Wound Care evaluate because a few of his blisters opened and to make sure he has dressings/creams available to keep the wounds clean. Will discharge the patient on Azithromycin for 1 more day (3 day treatment) for possible pasteurella bacteria and also continue Keflex PO Q8hrs for 7 more days. Probiotic given. The patient is going to stay at a local hotel for another 2 days to recover and then start driving back to [place] or [place]. He does not need anything for pain other than over the counter Tylenol PRN. He understands and agrees with the plan at this point for discharge. (2) Left leg DVT: Qualifiers: Affected thrombotic vein of extremity: peroneal Chronicity: acute Qualified Code(s): I82.452 - Acute embolism and thrombosis of left peroneal vein Code(s): I82.402 - Acute embolism and thrombosis of unspecified deep veins of left lower extremity Status: Acute Assessment and Plan: Venous Doppler left lower extremity with DVT in 1 of 2 left peroneal veins. Will continue Xarelto at discharge for 3-6 months. He will need to follow up with PCP upon arrival to [place]. 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 Continue home Long Acting Insulin which was slightly increased to 52 Units and Short Acting Meal Insulin at his 15 Units with meals. Educated to check glucose 5 times per day. Hypoglycemia warnings given. (4) Hypokalemia: Code(s): E87.6 - Hypokalemia Status: Acute Assessment and Plan: Potassium 3.3 today. Home potassium continued with additional replacement given today. Recheck BMP in 1 week. (5) HTN (hypertension) with goal to be determined: Code(s): I10 - Essential (primary) hypertension Status: Chronic Assessment and Plan: Blood pressure is improved today, normalized. Continue home hydralazine, losartan and hydrochlorothiazide. (6) Chronic progressive renal failure, stage 3 (moderate): Code(s): N18.3 - Chronic kidney disease, stage 3 (moderate) Status: Chronic Assessment and Plan: HCTZ resumed to aid in swelling. Cr has normalized. Will continue to monitor. DS: Summary Hospital Course Reason for hospitalization: Patient is a 59 yo M with history of DM II, multiple past cellulitis episodes, CKD, HTN, who was admitted for left lower leg cellulitis and left leg DVT. Showed temp of a 100.3?, BP 132/70, heart rate 108, RR 18, O2 99% on room air. Initial labs showed leukocytosis of 12,000, hyponatremia at 134, hypokalemia at 2.8, creatinine 1.6, elevated lactic acid was 2.6 then increased to 3.3 with reflux. The patient was found to be septic based on his initial leukocytosis, temperature, tachycardia with source of cellulitis. He had blood cultures taken which were negative. For his cellulitis, he was started on IV vancomycin and Primaxin per protocol. The patient travel
[2019-10-12 14:01] VITALS: BP 141/71; PULSE 96; RESP 18; TEMP 36.7; O2SAT 99
[2019-10-12] MEDS: SILVERGEL (ELTA) 45 ML 1 APPLIC TOPICAL (14:26)
--- NOTE | 2019-10-19 08:07 | PC.NURSE ---
Wound and Blood cx are negative. Wali Reyes PA-C aware.
== END 2019-10-12 16:11 | disposition home or self-care (01) | DRG 720 ==
LOC: ANHED 15:04 → ANH3MEDSUR 15:10
PROVIDERS: General Practice; Nurse Practitioner; Physician Assistant; Admitting Provider Hospitalist; Emergency Provider Emergency Medicine; Visit Provider Family Medicine
DX: A41.9 Sepsis, unspecified organism (principal); L03.116 Cellulitis of left lower limb; I82.452 Acute embolism and thrombosis of left peroneal vein; E11.22 Type 2 diabetes mellitus with diabetic chronic kidney disease; I12.9 Hypertensive chronic kidney disease with stage 1 through stage 4 chronic kidney disease, or unspecified chronic kidney disease; N18.3 Chronic kidney disease, stage 3 (moderate); E87.6 Hypokalemia; E87.1 Hypo-osmolality and hyponatremia; Z79.4 Long term (current) use of insulin; Z79.82 Long term (current) use of aspirin
CPT/HCPCS: 36415; 73701; 80048; 80053; 80202; 83036; 83605; 83735; 85025; 85027; 87040; 87070; 87205; 93005; 93971; 96365; 96367; 96372; 96376; 97116; 97161; 97165; 97530; 97535; 99285; A9270; G0378; J0360; J0456; J0743; J1170; J1650; J1815; J2060; J2543; J3370; J7030; Q9967